=== PATIENT | female | born 1945 | race Caucasian/White ===

== ENCOUNTER 2023-07-17 07:42 | Outpatient (RCR) | payer MEDICARE, BC, SELFPAY | END 2023-07-17 23:59 | disposition home or self-care (01) | LOC: ANHAUDIO 07:42 | DX: Z46.1 Encounter for fitting and adjustment of hearing aid (principal) | CPT/HCPCS: 92593 ==

== ENCOUNTER 2023-11-16 14:28 | Emergency (ER) | payer MEDICARE, BC, SELFPAY ==
[2023-11-16] VITALS (8 sets, daily range): BP systolic 119–159; BP diastolic 62–79; PULSE 72–93; RESP 15–98; TEMP 36.6–36.8; O2SAT 18–100
--- NOTE | ~2023-11-16 | CT_ITS ---
EXAMINATION: CT brain wo con DATE: 11/16/2023 17:12 INDICATION: Visual changes TECHNIQUE: Computed tomography (CT) of the head was performed without intravenous contrast. Sagittal and coronal reconstructions were performed. The mA was adjusted according to patient size. Iterative reconstruction technique was employed. The dose-length product was 1210.67 mGy-cm. COMPARISON: None FINDINGS: No acute intracranial hemorrhage, acute infarction or abnormal extra axial fluid collection. There is mild scattered white matter hypoattenuation consistent with chronic small vessel ischemic disease. S ymmetric prominence of the sulci consistent with mild age-appropriate diffuse cerebral volume loss. V entricles are normal and symmetric. No mass/mass effect. The orbits, paranasal sinuses and mastoid ai r cells are normal. IMPRESSION: 1. Normal aging brain with mild diffuse volume loss and mild scattered white matter hypoattenuation c onsistent with chronic small vessel ischemic disease. No acute intracranial process. Reviewed, dictated and finalized at location B. IMPRESSION: 1. Normal aging brain with mild diffuse volume loss and mild scattered white ma tter hypoattenuation consistent with chronic small vessel ischemic disease. No acute intracranial process.
--- NOTE | 2023-11-16 14:55 | ECG_ITS ---
Test Date: 2023-11-16 14:37:51 Measurements Intervals [employer] Rate: 97 P: 161 MA: 230 QRS: -9 QRSD: 92 T: 44 QT: 354 QTc: 452 Interpretive Statements ELECTRONIC ATRIAL PACEMAKER BASELINE ARTIFACT- I, II, III, AVR, AVL, AVF ATYPICAL ECG No previous ECG available for comparison Electronically Signed On 11-17-2023 06:47:14 CDT by Viktor Herring D.O.
[2023-11-16 17:24] LABS: Basophils Percent Auto 0.2 % (0.2-1.2); Eosinophils Absolute Auto 0.2 K/mm3 (0-0.3); Eosinophils Percent Auto 2.3 % (0-4.4); Hematocrit 41.2 % (37.0-47.0); Hemoglobin 12.9 g/dL (12.0-15.0); Immature Granulocyte Absolute 0.02 K/mm3 (0.00-0.031); Immature Granulocyte Percent A 0.2 % (0-0.5); Lymphocytes Absolute Auto 2.25 K/mm3 (0.9-3.2); Mean Corpuscular HGB Conc 31.3 g/dl (32-36); Mean Corpuscular Hemoglobin 27.5 pg (26-34); Mean Corpuscular Volume 87.8 fl (80-100); Monocytes Absolute Auto 0.9 K/mm3 (0.1-0.6); Monocytes Percent Auto 10.8 % (2.6-8.5); Neutrophils Absolute Auto 5.2 K/mm3 (1.3-6.7); Neutrophils Percent Auto 60.5 % (45.5-73.1); Platelet Count Result 135 k/mm3 (150-375); Red Blood Count 4.69 M/mm3 (4.2-5.4); White Blood Count 8.7 K/mm3 (4.5-10.0)
--- NOTE | 2023-11-16 17:37 | ED.NEUROSD ---
HPI - Neuro Symptoms/Deficit General Chief Complaint: Neuro Symptoms/Deficit Stated Complaint: vision changes Time Seen by Provider: 11/16/23 15:14 History of Present Illness HPI Narrative: 78-year-old female presenting with possible blurry vision. She has a history of dementia and her nursing facility was concerned that she had blurry vision. Patient denies any blurry vision. Her son is at bedside and states that she is behaving at baseline. She denies any complaints to me. Related Data Home Medications Medication Instructions Recorded Confirmed carvedilol 3.125 mg tablet mg 11/16/23 divalproex 125 mg capsule,delayed mg PO 11/16/23 release sprinkle donepezil 5 mg tablet mg 11/16/23 memantine 10 mg tablet mg 11/16/23 mirtazapine 30 mg tablet mg 11/16/23 simvastatin 20 mg tablet mg 11/16/23 Allergies Allergy/AdvReac Type Severity Reaction Status Date / Time No Known Allergies Allergy Verified 11/16/23 15:03 Review of Systems Review of Systems: All systems reviewed & are unremarkable except as noted in HPI and below Exam Narrative: GENERAL: Well-appearing, nontoxic, in no acute distress HEAD: Normocephalic, atraumatic. EYES: PERRLA and EOMI. ENT: grossly unremarkable NECK: Supple. CHEST: Clear to auscultation. No respiratory distress. HEART: Regular rate and rhythm ABDOMEN: Soft, nontender, nondistended EXTREMITIES: Normal range of motion. SKIN: Warm, dry, no rash. NEURO: Alert and oriented x1. 5/5 strength in all extremities, no sensory deficits, no facial droop, no dysarthria or aphasia PSYCH: Normal mood and affect. Course Vital Signs Vital signs: Vital Signs Temperature 98.3 F 11/16/23 14:40 Pulse Rate 93 11/16/23 14:40 Respiratory Rate 18 11/16/23 14:40 Blood Pressure 119/62 11/16/23 14:40 Pulse Oximetry 94 11/16/23 14:40 Temperature 98.3 F 11/16/23 14:40 Pulse Rate 74 11/16/23 18:50 Respiratory Rate 97 H 11/16/23 18:50 Blood Pressure 132/62 11/16/23 18:50 Pulse Oximetry 97 11/16/23 18:50 MDM - Neuro Symptoms/Deficit MDM Narrative Medical decision making narrative: 78-year-old female presenting with an episode of possible blurry vision earlier today. Vitals within normal limits. Exam remarkable for the above. She denies any complaints to me. CT brain without acute abnormalities. Blood work without significant abnormalities. UA is concerning for UTI. Patient given a dose of Keflex. Feel she is safe for outpatient management. Her son is agreeable with this plan. Recommend PCP follow-up. Discharged in stable condition. Differential Diagnosis Differential diagnosis: Likely other (Electrolyte derangement, vision changes, UTI) Medical Records Attestation: I reviewed the patient's medical records. Lab Data Attestation: I reviewed the patient's lab results. 11/16/23 17:19 11/16/23 17:19 Labs: Lab Results 11/16/23 11/16/23 Range/Units 17:19 18:44 WBC 8.7 (4.5-10.0) K/mm3 RBC 4.69 (4.2-5.4) M/mm3 Hgb 12.9 (12.0-15.0) g/dL Hct 41.2 (37.0-47.0) % MCV 87.8 (80-100) fl MCH 27.5 (26-34) pg MCHC 31.3 L (32-36) g/dl RDW 15.0 H (11.5-14.5) % Plt Count 135 L (150-375) k/mm3 MPV 12.0 H (7.4-10.4) fl Immature Gran % (Auto) 0.2 (0-0.5) % Neut % (Auto) 60.5 (45.5-73.1) % Lymph % (Auto) 26.0 (18.3-44.2) % [place] % (Auto) 10.8 H (2.6-8.5) % Eos % (Auto) 2.3 (0-4.4) % Baso % (Auto) 0.2 (0.2-1.2) % Lymph # (Auto) 2.25 (0.9-3.2) K/mm3 [place] # (Auto) 0.9 H (0.1-0.6) K/mm3 Eos # (Auto) 0.2 (0-0.3) K/mm3 Baso # (Auto) 0.0 (0.0-0.1) K/mm3 Abs Immat Gran (auto) 0.02 (0.00-0.031) K/mm3 Absolute Neuts (auto) 5.2 (1.3-6.7) K/mm3 Absolute Nucleated RBC 0.000 (0.0-0.012) K/mm3 Nucleated RBC % 0.0 (0.0-0.2) % Sodium 140 (137-145) mmol/L Potassium 4.4 (3.4-5.0) mmol/L Chloride 103 (98-107) mmol/L Carbon Dioxide 29 (
[2023-11-16 17:42] LABS: Alanine Aminotransferase 14 U/L (6-35); Alkaline Phosphatase 121 U/L (38-126); Anion Gap 8 mmol/L (4-12); Aspartate Amino Transferase 26 U/L (14-36); Bilirubin,Total 0.4 mg/dL (0.2-1.3); Blood Urea Nitrogen 22 mg/dL (7-17); Calcium 9.5 mg/dL (8.4-10.2); Carbon Dioxide 29 mmol/L (22-30); Chloride 103 mmol/L (98-107); Estimated Glomerular Filt Rate 48; Glucose 99 mg/dL (65-110); Potassium 4.4 mmol/L (3.4-5.0); Sodium 140 mmol/L (137-145)
[2023-11-16 19:14] LABS: Add Urine Microscopic? YES; Appearance Urine Clear (Clear); Bacteria Urine 4+ /hpf; Bilirubin Urine Negative (Negative); Blood Urine Negative (Negative); Color Urine Yellow (Yellow); Glucose Urine UA Negative (Negative); Ketones Urine Trace mg/dL (Negative); Leukocyte Esterase Ur 3+ LEU/UL (Negative); Nitrate Urine Positive (Negative); Non Pathogenic Casts 0-2; Protein Urine Negative (Negative); RBC Urine 0-2 /hpf (0-2); Specific Grav Ur 1.014 (1.001-1.035); Squamous Epithelial Cell Urine None Seen /hpf (Few); Urobilinogen Urine 0.2 mg/dL (<2.0); WBC Urine >100 /hpf (0-3)
[2023-11-16] MEDS: CEPHALEXIN 500 MG CAPSULE PO (19:47)
== END 2023-11-16 20:08 ==
PROVIDERS: Emergency Provider Emergency Medicine
DX: N39.0 Urinary tract infection, site not specified (principal); F03.90 Unspecified dementia, unspecified severity, without behavioral disturbance, psychotic disturbance, mood disturbance, and anxiety; Z95.0 Presence of cardiac pacemaker; Z79.899 Other long term (current) drug therapy
CPT/HCPCS: 36415; 70450; 80053; 81001; 85025; 87077; 87086; 87088; 87186; 93005; 99284; A9270